=== PATIENT | female | born 1990 | race Caucasian/White ===

== ENCOUNTER 2019-01-23 08:55 | Inpatient (IN) | payer MEDICAID ==
[~2019-01-23] VITALS: Ht 172.7 cm; Wt 72.6 kg
--- NOTE | 2019-01-23 09:00 | NUR ---
PT TAKEN TO BED 12.
[2019-01-23] MEDS ORDERED: NACL 0.9% 1,000 ML IV ONE (09:03)
[2019-01-23 09:05] VITALS: BP 122/75
[2019-01-23] MEDS ORDERED: ONDANSETRON 4 MG/2 ML VIAL IVP ONE (09:05)
[2019-01-23] MEDS ORDERED: KETOROLAC 30 MG/ML VIAL IVP ONE (09:05)
[2019-01-23] MEDS ORDERED: CLINDAMYCIN 600 MG in DEXTROSE 5% 50 ML IV ONE (09:05)
[2019-01-23] MEDS ORDERED: CLINDAMYCIN 600 MG/4 ML VIAL ONE (09:23)
[2019-01-23 09:28] LABS: RED CELL DISTRIBUTION WIDTH 13.1 % (11.6-13.7)
[2019-01-23 09:33] LABS: HEMATOCRIT 34.3 % (36-48); HEMOGLOBIN 11.6 g/dL (12.0-16.0); MEAN CORPUSCULAR HEMOGLOBIN 31 pg (27-31); MEAN CORPUSCULAR HGB CONC 34 g/dL (33-37); MEAN CORPUSCULAR VOLUME 90.5 fL (80-94); PLATELET COUNT (AUTO) 223 K/uL (140-450); RED BLOOD CELL COUNT(AUTO) 3.79 MIL/uL (4.20-5.40)
[2019-01-23 09:37] LABS: ANION GAP 19.2 (8-16); CARBON DIOXIDE 22.2 mmol/L (21-32); CREATININE 1.1 mg/dL (0.6-1.3); POTASSIUM 3.4 mmol/L (3.5-5.1)
[2019-01-23 09:38] LABS: PROTHROMBIN TIME 11.6 secs (10.8-13.4)
[2019-01-23 09:42] LABS: LYMPHOCYTES % (MANUAL) 1 % (20-46); MONOCYTES % (MANUAL) 3 % (5-12)
[2019-01-23 09:43] LABS: ALBUMIN 3.4 g/dL (3.4-5.0); TOTAL BILIRUBIN 0.4 mg/dL (0.0-1.0)
[2019-01-23] MEDS ORDERED: PIPERACILLIN/TAZOBACTAM 3.375 GM in DEXTROSE 5% 50 ML IV ONE (10:05)
[2019-01-23] MEDS ORDERED: NACL 0.9% 1,500 ML IV ONE (10:05)
--- NOTE | 2019-01-23 10:08 | NUR ---
28 Y/O FEMALE PRESENTING WITH REDNESS ON LEFT ELBOW DUE TO SPIDER BITE PER PATIENT. NAUSEA, H/A X2 DAYS. PT COMPLAINTS OF PAIN 8/10. FEVER NOTED. NO MEDICAL HISTORY. DENIES DIARRHEA. SIDE RAIL X1. SIGNIFICANT OTHER AT BEDSIDE.
[2019-01-23] MEDS ORDERED: PIPERACILLIN/TAZOBACTAM 3.375 GM VIAL IV ONE (10:22)
[2019-01-23] MEDS ORDERED: DOCUSATE SODIUM 100 MG GELCAP PO PRN (10:30)
[2019-01-23] MEDS ORDERED: HYDROcodone/APAP 5/325 MG 1 TAB TAB PO PRN (10:30)
[2019-01-23] MEDS ORDERED: MORPHINE SULFATE 2 MG/ML SYR IVP PRN (10:30)
[2019-01-23 10:33] LABS: APPEARANCE,URINE SL CLOUDY (CLEAR); BILIRUBIN,URINE NEGATIVE (NEGATIVE); BLOOD, URINE NEGATIVE (NEGATIVE); COLOR,URINE YELLOW (YELLOW); LEUKOCYTE ESTERASE ,URINE NEGATIVE (NEGATIVE); NITRITE, URINE NEGATIVE (NEGATIVE); PH,URINE 5.5 (5.0-9.0); UGLUCOSE NEGATIVE (NEGATIVE)
[2019-01-23 10:46] LABS: RBC,URINE 0-5 /HPF (0-5); WBC,URINE 0-5 /HPF (0-5)
[2019-01-23 10:57] LABS: BARBITURATE, URINE POS. ng/ml (NEG <=200); BENZODIAZEPINE, URINE NEG. ng/mL (NEG <=200); CANNABINOID, URINE NEG. ng/mL (NEG <=50); COCAINE, URINE NEG. ng/mL (NEG <=300); OPIATE, URINE NEG. ng/mL (NEG <=2000); PHENCYCLIDINE SCREEN,URINE NEG. ng/mL (NEG <=25)
--- NOTE | 2019-01-23 11:30 | NUR ---
RECEIVED PT FROM NURSE ALVARADO FOR CONTINUITY OF CARE. PT IS AAOX4, AMBULATORY AND COOPERATIVE. PT SKIN IS INTACT BUT HAS DX OF CELLULITIS TO THE LEFT ELBOW. SKIN IS BRIGHT RED AND HAS OUTLINE MARKED BY ED PT ON RA WITHOUT S/S OF DISTRESS. PT COMPLAINS OF 7/10 PAIN FOR MARTIN. WILL MEDICATE INDICATED. EXPLAINED POC TO PT AND PT VERBALIZED UNDERSTANDING. BED IN LOW POSITION, CALL LIGHT WITHIN REACH. WILL CONTINUE TO ROUND FREQUENTLY ON PT. BED IN LOW POSITION, CALL LIGHT WITHIN REACH.
--- NOTE | 2019-01-23 11:30 | NUR ---
Patient will be admitted to care of DR MAYFIELD . Admited to [facility] . Will go to [id number]. Belongings list completed. Report to ROM RENO .
[2019-01-23 11:35] LABS: MAGNESIUM 1.7 mg/dL (1.8-2.4); PHOSPHORUS 3.1 mg/dL (2.5-4.9); THYROID STIMULATING HORMONE 0.37 uIU/mL (0.34-3.74)
[2019-01-23] MEDS ORDERED: LACTOBACILLUS RHAMNOSUS GG 1 EACH CAP PO SCH (12:35)
[2019-01-23] MEDS: NACL 0.9% 1,000 ML IV SCH (12:39)
[2019-01-23 13:10] LABS: PROTHROMBIN TIME 12.3 secs (10.8-13.4)
[2019-01-23] MEDS: ACETAMINOPHEN 325 MG TAB PO PRN ×2 (13:22→18:39)
--- NOTE | 2019-01-23 13:41 | NUR ---
PT SLEEPING IN BED WITH BF AT BEDSIDE. PT IN STABLE CONDITION, WILL ROUND FREQUENTLY ON PT.
[2019-01-23] MEDS ORDERED: POTASSIUM CHLORIDE 10 MEQ TABER PO SCH (14:15)
[2019-01-23] MEDS ORDERED: MAGNESIUM OXIDE 400 MG TAB PO SCH (14:15)
--- NOTE | 2019-01-23 15:34 | NUR ---
PT RESTING IN BED WITH FAMILY AT BEDSIDE. PT DENIES PAIN. WILL CONTINUE TO ROUND ON PT.
[2019-01-23 16:00] VITALS: BP 118/64
[2019-01-23] MEDS ORDERED: INFLUENZA VACCINE QUAD 0.5 ML SYR IMVAC PRN (16:30)
--- NOTE | 2019-01-23 17:41 | NUR ---
PT RESTING IN BED COMPLAINING OF MID MARTIN. I OFFERED PAIN MEDS BUT PT REFUSED AND ASKED FOR LIGHTS TO BE TURNED OFF AND FOR AN ICE PACK. WILL CONTINUE TO ASSESS PT FREQUENTLY.
[2019-01-23] MEDS: CLINDAMYCIN 600 MG in DEXTROSE 5% 50 ML IV SCH (18:39)
--- NOTE | 2019-01-23 19:30 | NUR ---
RECEIVED PT FROM ROM RENO PT IS AAOX4 AMBULATORY, LEFT WRIST GAUGE # 20 INFUSING WELL IV FLUID AND HL PATENT ON RT AC GAUGE @ 20 PATENT PAIN MEDIC ALREADY GIVEN FOR HEADACHE INITIAL ASSESSMENT DONE
--- NOTE | 2019-01-23 19:49 | NUR ---
ENDORSED PT TO TREE WORKER NURSE SHAUNNA FOR CONTINUITY OF CARE. PT IN STABLE CONDITION AT THIS TIME AND BEING DISCHARGED. Addendum: 01/23/19 at 1953 by Gloria Drake RN WRONG PT. PT ENDORSED TO YUNIOR TREE WORKER RN FOR CONTINUITY OF CARE. PT IN STABLE CONDITION AT THIS TIME. PT COMPLAINING OF MARTIN. NOTIFIED AND HE WILL PRESCRIBE FIORICET TO PT FOR MIGRAINE RELIEF. YUNIOR NOTIFIED OF PENDING ORDER.
[2019-01-23 20:00] VITALS: BP 107/65
[2019-01-23] MEDS: KETOROLAC 15 MG/ML VIAL IVP PRN (21:51)
--- NOTE | 2019-01-23 22:47 | NUR ---
PT SLEEPING WELL AFTERPAIN MEDIC GIVEN
[2019-01-24] VITALS: BP 103/67
[2019-01-24] MEDS: CLINDAMYCIN 600 MG in DEXTROSE 5% 50 ML IV SCH (02:15)
[2019-01-24] MEDS: NACL 0.9% 1,000 ML IV SCH ×3 (02:15→23:19)
--- NOTE | 2019-01-24 02:19 | NUR ---
PT VOIDING WELL WALKING TO THE RESTROOM NOT DISTRESS NOTED GETTING SLEEP LEFT ARM ON PILLOW ELEVATION
[2019-01-24] MEDS: KETOROLAC 15 MG/ML VIAL IVP PRN (05:38)
[2019-01-24 05:58] LABS: HEMATOCRIT 30.8 % (36-48); HEMOGLOBIN 10.3 g/dL (12.0-16.0); MEAN CORPUSCULAR HEMOGLOBIN 31 pg (27-31); MEAN CORPUSCULAR HGB CONC 33 g/dL (33-37); MEAN CORPUSCULAR VOLUME 91.7 fL (80-94); PLATELET COUNT (AUTO) 195 K/uL (140-450); RED BLOOD CELL COUNT(AUTO) 3.36 MIL/uL (4.20-5.40); RED CELL DISTRIBUTION WIDTH 12.9 % (11.6-13.7); WHITE BLOOD COUNT (AUTO) 15.1 K/uL (4.8-10.8)
--- NOTE | 2019-01-24 06:00 | NUR ---
PT SLEEPING WELL AFTER PAIN MEDIC GIVING
[2019-01-24 06:06] LABS: CARBON DIOXIDE 23.8 mmol/L (21-32); CREATININE 0.7 mg/dL (0.6-1.3); POTASSIUM 3.8 mmol/L (3.5-5.1)
[2019-01-24 06:18] LABS: MAGNESIUM 1.7 mg/dL (1.8-2.4); PHOSPHORUS 1.2 mg/dL (2.5-4.9)
[2019-01-24 06:29] LABS: LYMPHOCYTES % (MANUAL) 5 % (20-46); MONOCYTES % (MANUAL) 3 % (5-12)
[2019-01-24] MEDS: ONDANSETRON 4 MG/2 ML VIAL IM/IVP PRN ×2 (06:30→19:59)
[2019-01-24] MEDS ORDERED: SODIUM PHOS / POTASSIUM PHOS 1 PKT PDR PO SCH (06:40)
[2019-01-24] MEDS ORDERED: MAGNESIUM OXIDE 400 MG TAB PO SCH (06:40)
--- NOTE | 2019-01-24 06:44 | NUR ---
PT RESTING ON BED NOT DISTRESS NOTED AT THIS TIME, PT WILL BE ENDORSED TO DAY SHIFT NURSE FOR CONTINUE OF CARE
--- NOTE | 2019-01-24 07:20 | NUR ---
RECEIVED PT FROM DULSER NURSEYUNIOR, PT IS AWAKE AND LYING ON THE BED WITH SIDE RAILS UP AND CALL LIGHT WITHIN REACH, PERIPHERAL LINE ON THE RT AC G. 22 ON SALINE LOCK AND ON THE LEFT HAND G. 20 WITH NS INFUSING AT 60ML/HR, LEFT ELBOW CELLULITIS NOTED AND NO DRAINAGE NOTED, PT DENIES PAIN AND WILL CONTINUE TO BE MONITORED.
[2019-01-24 08:00] VITALS: BP 112/73
[2019-01-24] MEDS ORDERED: VANCOMYCIN PER PHARMACY MC PRN (08:00)
--- NOTE | 2019-01-24 08:21 | NUR ---
PATIENT HAS BEEN SCREENED AND CATEGORIZED LOW NUTRITION RISK. PATIENT WILL BE SEEN WITHIN 7 DAYS OF ADMISSION. 01/30/[address]
[2019-01-24] MEDS: LACTOBACILLUS RHAMNOSUS GG 1 EACH CAP PO SCH (09:11)
--- NOTE | 2019-01-24 09:12 | NUR ---
ADMINISTERED MEDICATION. EDUCATED PATIENT ON MEDICATION PURPOSE AND SIDE EFFECTS. PATIENT VERBALIZED UNDERSTANDING. PATIENT TOLERATED WELL. WILL CONTINUE TO MONITOR. BED IN LOW POSITION. CALL LIGHT WITHIN REACH. PATIENT INSTRUCTED TO UTILIZE CALL LIGHT FOR ANY ASSISTANCE.
[2019-01-24] MEDS: APAP/BUTAL/CAFF 325/50/40 MG 1 TAB PO PRN ×2 (09:16→18:30)
--- NOTE | 2019-01-24 09:18 | NUR ---
PATIENT C/O PAIN 10/15, HEADACHE. MEDICATED WITH PAIN MEDICATION, FIORICET. EDUCATED ON PURPOSE AND SIDE EFFECTS. WILL CONTINUE TO MONITOR PAIN LEVEL.
[2019-01-24] MEDS: VANCOMYCIN 1,000 MG in DEXTROSE 5% 250 ML IV SCH ×2 (10:19→18:21)
--- NOTE | 2019-01-24 10:19 | NUR ---
VANCOMYCIN IVPB WAS STARTED TO PT NOW, WILL MONITOR PT.
[2019-01-24] MEDS: PIPERACILLIN/TAZOBACTAM 3.375 GM in DEXTROSE 5% 50 ML IV SCH ×3 (11:21→23:19)
--- NOTE | 2019-01-24 12:25 | NUR ---
Parks Worker Note: Basic Screen: Yes High Risk DC Screen Cody: HEATH Hurtado Relationship: SIGNIFICANT OTHER Pre-Admission Living Arrangements: Lives with Other Prior ADL Independent Current Home Health Name/Tel: N/A Current DME/02 Name/Tel: N/A Current Hospice Name/Tel: N/A Current Dialysis Name/Tel: N/A Healthcare Decision Maker: Patient Advance Directive No - REFUSED Physician Orders for Life Sustaining Treatment Form No Patient/Family Have Educational Needs No Information Taught: Advance Directive Person Taught: Patient Teaching Tools: Verbal Factors Affecting Learning: None Participation Level: Refused Evaluation: Verbalizes Understanding Discipline: Case Mgt/Social Svcs Tentative Discharge Plan/Destination: No Needs Identified Will require assistance post discharge: No Referred to [facility]: No Tentative Discharge Plan Summary: Patient is a 28 year old female admitted for left elbow cellulitis. Patient has PMHX of migraine and anemia. Patient was admitted from home. ZEKE verified demographics with patient. Patient stated she has no PCP. SW provided low cost clinic resources. Patient stated her last appointment with a PCP was in April 2018. Patient reports no history of mental health and no substance abuse history. Patient's tentative discharge plan is to return home. No further needs identified. Signature: MARIAH Leblanc Date: Jan 24, 2019 Time: 12:24
[2019-01-24] MEDS: ACETAMINOPHEN 325 MG TAB PO PRN ×2 (13:40→23:47)
--- NOTE | 2019-01-24 13:41 | NUR ---
PATIENT COMPLAINT OF HEADACHE 10/15. FIORICET NOT DUE YET INSTEAD TYLENOL WERE GIVEN. EDUCATED ON MEDICATION AND SIDE EFFECTS. PATIENT TOLERATED WELL. WILL CONTINUE TO MONITOR.
[2019-01-24 16:00] VITALS: BP 115/69
--- NOTE | 2019-01-24 17:14 | NUR ---
PT WAS GIVEN IV ZOSYN IVPB NOW. WILL MONITOR PT
--- NOTE | 2019-01-24 18:21 | NUR ---
VANCOMYCIN IVPB WAS GIVEN TO PT NOW, WILL MONITOR PT.
--- NOTE | 2019-01-24 18:30 | NUR ---
PT WAS GIVEN FIORICET FOR THE MIGRAINE, WILL RE-ASSESS PAIN AND MONITOR PT.
--- NOTE | 2019-01-24 19:12 | NUR ---
ENDORSED PT TO [facility] SHIFT NURSESHILOH FOR CONTINUITY OF CARE.
--- NOTE | 2019-01-24 19:13 | NUR ---
RECEIVED BEDSIDE REPORT FROM AM SHIFT NURSE. PT IS LYING IN BED AWAKE . PT IS AMBULATORY. NO SOB OR DISTRESS NOTED. IV ACCESS NOTED ON LEFT HAND 20 GAUGE, PATENT AND INTACT, INFUSING WELL. AND RIGHT AC 22 GAUGE SALINE LOCK. NOTED WITH LEFT ARM CELLULITIS, WARM TO TOUCH WITH ICE PACK. INITIAL ASSESSMENT DONE. CALL LIGHT WITHIN PATIENT REACH. BOARD UPDATED. WILL CONTINUE TO MONITOR PATIENT.
--- NOTE | 2019-01-24 23:19 | NUR ---
IV ANTIBIOTIC ZOSYN STARTED AT THIS TIME. WILL CONTINUE TO MONITOR PATIENT.
--- NOTE | 2019-01-24 23:47 | NUR ---
PRN TYLENOL GIVEN FOR FEVER 102.7 AND COOLING MEASURES RENDERED. WILL CONTINUE TO MONITOR PATIENT. ICE PACK ON LEFT ARM CHANGED.
[2019-01-25 00:15] VITALS: BP 129/82
--- NOTE | 2019-01-25 00:45 | NUR ---
RECHECKED TEMP. PT TEMP OF 100.4. COOLING MEASURES STILL IN PLACE. WILL CONTINUE TO MONITOR PATIENT.
--- NOTE | 2019-01-25 01:15 | NUR ---
RECHECKED TEMP. PT TEMP OF 98.9 ORAL. ICE PACK ON LEFT ARM CHANGED. SKIN STILL RED AND WARM TO TOUCH. WILL CONTINUE TO MONITOR PATIENT.
[2019-01-25] MEDS: VANCOMYCIN 1,000 MG in DEXTROSE 5% 250 ML IV SCH (02:18)
--- NOTE | 2019-01-25 02:18 | NUR ---
IV ANTIBIOTIC VANCOMYCIN STARTED AT THIS TIME. WILL CONTINUE TO MONITOR PATIENT.
[2019-01-25] MEDS: APAP/BUTAL/CAFF 325/50/40 MG 1 TAB PO PRN (06:06)
[2019-01-25] MEDS: PIPERACILLIN/TAZOBACTAM 3.375 GM in DEXTROSE 5% 50 ML IV SCH ×3 (06:06→18:37)
--- NOTE | 2019-01-25 06:06 | NUR ---
IV ANTIBIOTIC ZOSYN STARTED AT THIS TIME. WILL CONTINUE TO MONITOR PATIENT.
[2019-01-25 06:16] LABS: HEMATOCRIT 30.4 % (36-48); HEMOGLOBIN 10.3 g/dL (12.0-16.0); MEAN CORPUSCULAR HEMOGLOBIN 31 pg (27-31); MEAN CORPUSCULAR HGB CONC 34 g/dL (33-37); MEAN CORPUSCULAR VOLUME 90.5 fL (80-94); PLATELET COUNT (AUTO) 207 K/uL (140-450); RED BLOOD CELL COUNT(AUTO) 3.35 MIL/uL (4.20-5.40); RED CELL DISTRIBUTION WIDTH 13.1 % (11.6-13.7); WHITE BLOOD COUNT (AUTO) 14.3 K/uL (4.8-10.8)
[2019-01-25 06:32] LABS: ANION GAP 15.2 (8-16); CARBON DIOXIDE 23.3 mmol/L (21-32); CREATININE 0.7 mg/dL (0.6-1.3); POTASSIUM 3.5 mmol/L (3.5-5.1)
--- NOTE | 2019-01-25 06:53 | NUR ---
PATIENT IN STABLE CONDITION. WILL ENDORSE TO AM SHIFT NURSE FOR CONTINUITY OF CARE.
--- NOTE | 2019-01-25 07:00 | NUR ---
RECEIVED REPORT FROM DOG OR ANIMAL SITTER NURSE AT BEDSIDE. PATIENT IS AWAKE, ALERT AND ORIENTED X4, LYING IN BED. RESPIRATION EVEN AND UNLABORED. IV INTACT AND PATENT TO LEFT HAND WITH IVF NS INFUSING AT 60ML/HR. TOLERATING WELL. LEFT ELBOW REDNESS AND EDEMA NOTED, ICE PACKS APPLIED FOR COMFORT. CALL LIGHT WITHIN REACH. WILL CONTINUE TO MONITOR PATIENT.
--- NOTE | 2019-01-25 07:05 | NUR ---
REPORT GIVEN TO NIGHT NURSE. PATIENT IS IN STABLE CONDITION.
[2019-01-25 08:00] VITALS: BP 129/68
--- NOTE | 2019-01-25 09:00 | NUR ---
NO IV ACCESS AVAILABLE AT THIS TIME. PICC LINE ORDERED PER DR. ZENDEJAS.
[2019-01-25] MEDS: LACTOBACILLUS RHAMNOSUS GG 1 EACH CAP PO SCH (09:07)
[2019-01-25 09:21] LABS: LYMPHOCYTES % (MANUAL) 8 % (20-46); MONOCYTES % (MANUAL) 5 % (5-12)
[2019-01-25 09:22] LABS: EOSINOPHILS % (MANUAL) 1 % (0-4)
[2019-01-25 10:33] LABS: MAGNESIUM 1.8 mg/dL (1.8-2.4); PHOSPHORUS 2.3 mg/dL (2.5-4.9)
--- NOTE | 2019-01-25 10:55 | NUR ---
PATIENT IS IN BED, AWAKE AND VERBALLY RESPONSIVE. CONSENT SIGNED FOR CT TO LEFT UPPER EXTREMITY WITH CONTRAST. FOLLOWED UP WITH CARMELO GUZMAN RESULT STILL PENDING. Addendum: 01/25/19 at 1101 by Julia Kate RN IN ADDITION TO NOTE ABOVE: AWAITING FOR PICC LINE INSERTION. CONSENT SIGNED.
--- NOTE | 2019-01-25 12:53 | NUR ---
PATIENT REPORTS PAIN TO LEFT ELBOW /, MEDICATED WITH PO NORCO 5/325 NOW. WILL CONTINUE TO MONITOR PATIENT. STILL AWAITING FOR THE PICC LINE NURSE FOR PICC INSERTION.
[2019-01-25] MEDS ORDERED: HYDROcodone/APAP 5/325 MG 1 TAB TAB PO SCH (13:00)
--- NOTE | 2019-01-25 13:27 | NUR ---
DC PLANNING 28 YRS OLD FEMALE ADMITTED FROM HOME WITH A DX OF LEFT ELBOW CELLULITIS. ALERT AND ORIENTED X 4, AMBULATE WITH NO ASSIST. MEDICAL HX MIGRAINE AND ANEMIA. SEPSIS PROTOCOL INITIATED ,ADMINISTERED IVF, ZOSYN AND CLINDAMYCIN . DC PLAN TO GO BACK TO HOME WITH ABX . CM TO FOLLOW
--- NOTE | 2019-01-25 13:40 | NUR ---
PICC LINE INSERTION STARTED NOW BY PICC LINE NURSE.
--- NOTE | 2019-01-25 14:00 | NUR ---
STAT CHEST XRAY DONE FOR PICC LINE PLACEMENT. RESULT IS READY, PER PICC LINE NURSE, PICC LINE IS IN CORRECT PLACE.
[2019-01-25] MEDS ORDERED: PIPERACILLIN/TAZOBACTAM 3.375 GM in DEXTROSE 5% 50 ML IV SCH (14:30)
[2019-01-25] MEDS: ONDANSETRON 4 MG/2 ML VIAL IM/IVP PRN (14:42)
--- NOTE | 2019-01-25 15:02 | NUR ---
PATIENT RECEIVED TDAP TO RIGHT DELTOID. NO BLEEDING NOTED. IV ANTIBIOTIC STARTED VIA PICC LINE TO RIGHT UPPER ARM. PATIENT IS ALERT, AWAKE AND ORIENTED X4. C/O NAUSEA ZOFRAN GIVEN ORDERED PRN. FAMILY AT BEDSIDE. NO S/S OF DISTRESS NOTED. WILL CONTINUE TO MONITOR.
[2019-01-25 16:00] VITALS: BP 116/66
[2019-01-25] MEDS ORDERED: VANCOMYCIN 1,250 MG in DEXTROSE 5% 250 ML IV SCH ×2 (18:00→19:00)
--- NOTE | 2019-01-25 18:30 | NUR ---
PT IS OFF UNIT FOR CT SCAN TO LEFT UPPER EXT. RIGHT UPPER ARM PICC LINE INTACT AND PATENT. PATIENT IS ALERT AND ORIENTED X4. NO S/S OF DISTRESS NOTED. VANCO TROUGH DRAWN AT 1700, AWAITING FOR ORDERS. WILL CONT. TO MONITOR. Addendum: 01/25/19 at 1946 by Julia Kate RN IN ADDITION TO NOTE ABOVE: VANCO TROUGH UNABLE TO ADMINISTER AT 1800 AWAITING PHARMACY PROTOCOL ORDERS.
--- NOTE | 2019-01-25 19:15 | NUR ---
RECEIVED BEDSIDE REPORT FROM AM SHIFT NURSE. PT RETURNED FROM CT SCAN AT THIS TIME. NO SOB OR DISTRESS NOTED. IV ACCESS NOTED ON RIGHT UPPER ARM PICC LINE. PATENT AND INFUSING WELL. NOTED WITH LEFT ELBOW CELLULITIS, WARM TO TOUCH. PT IS AMBULATORY, BED IN LOW. SAFETY MEASURES IN PLACE. BOARD UPDATED. INITIAL ASSESSMENT DONE. CALL LIGHT WITHIN PATIENT REACH.
--- NOTE | 2019-01-25 21:25 | NUR ---
SPOKE TO THI FROM PHARMACY AT THIS TIME. SHE CANCELLED THE CURRENT ORDERS FOR VANCOMYCIN AND PUT IN NEW ORDERS. NEW ORDER MADE FOR A LOADING DOSE OF VANCOMYCIN 1500MG IN D5 NS 500ML TO BE GIVEN AT 10PM AND THE 1,250MG IN D5 NS 250ML DOSE OF VANCOMYCIN TO BE PUSHED TO 0600.
[2019-01-25] MEDS ORDERED: VANCOMYCIN 1,000 MG VIAL ONE (21:49)
[2019-01-25] MEDS ORDERED: VANCOMYCIN 500 MG VIAL ONE (21:50)
[2019-01-25] MEDS ORDERED: VANCOMYCIN 1,500 MG in DEXTROSE 5% 500 ML IV SCH (22:00)
--- NOTE | 2019-01-25 22:10 | NUR ---
ROUNDS DONE AT THIS TIME. VISIBLE CHEST RISE AND FALL NOTED. ICE PACK CHANGED ON LEFT ARM CELLULITIS. WILL CONTINUE TO MONITOR PATIENT.
[2019-01-25] MEDS ORDERED: CLINDAMYCIN 600 MG in DEXTROSE 5% 50 ML IV SCH (22:30)
[2019-01-26] MEDS ORDERED: VANCOMYCIN 1,250 MG in DEXTROSE 5% 250 ML IV SCH ×2
--- NOTE | 2019-01-26 00:10 | NUR ---
VITAL SIGNS TAKEN AT THIS TIME. VISIBLE CHEST RISE AND FALL NOTED. ICE PACK CHANGED ON LEFT ARM CELLULITIS. WILL CONTINUE TO MONITOR PATIENT.
[2019-01-26 00:15] VITALS: BP 144/80
[2019-01-26] MEDS ORDERED: CLINDAMYCIN 600 MG/4 ML VIAL ONE ×2 (00:31→04:37)
--- NOTE | 2019-01-26 03:20 | NUR ---
ROUNDS DONE AT THIS TIME. VISIBLE CHEST RISE AND FALL NOTED. ICE PACK CHANGED ON LEFT ARM CELLULITIS. WILL CONTINUE TO MONITOR PATIENT.
[2019-01-26] MEDS: CLINDAMYCIN 600 MG in DEXTROSE 5% 50 ML IV SCH ×3 (04:52→21:15)
[2019-01-26] MEDS: NACL 0.9% 1,000 ML IV SCH ×2 (05:10→11:38)
[2019-01-26] MEDS: VANCOMYCIN 1,250 MG in DEXTROSE 5% 250 ML IV SCH ×3 (06:02→22:00)
[2019-01-26 06:21] LABS: BASOPHILS % (AUTO) 0.4 % (0.0-2.0); EOSINOPHILS # (AUTO) 0.3 K/uL (0-0.4); EOSINOPHILS % (AUTO) 2.4 % (0.0-4.0); HEMATOCRIT 28.8 % (36-48); HEMOGLOBIN 9.8 g/dL (12.0-16.0); LYMPHOCYTES # (AUTO) 1.4 K/uL (2.5-16.5); LYMPHOCYTES % (AUTO) 12.7 % (20.5-51.1); MEAN CORPUSCULAR HEMOGLOBIN 30 pg (27-31); MEAN CORPUSCULAR HGB CONC 34 g/dL (33-37); MEAN CORPUSCULAR VOLUME 89.6 fL (80-94); NEUTROPHILS # (AUTO) 8.5 K/uL (1.8-7.7); NEUTROPHILS % (AUTO) 75.5 % (42.2-75.2); PLATELET COUNT (AUTO) 235 K/uL (140-450); RED BLOOD CELL COUNT(AUTO) 3.21 MIL/uL (4.20-5.40); WHITE BLOOD COUNT (AUTO) 11.3 K/uL (4.8-10.8)
[2019-01-26 06:37] LABS: ANION GAP 14.7 (8-16); CARBON DIOXIDE 24.7 mmol/L (21-32); CREATININE 0.7 mg/dL (0.6-1.3); POTASSIUM 3.4 mmol/L (3.5-5.1)
[2019-01-26 06:47] LABS: MAGNESIUM 1.9 mg/dL (1.8-2.4); PHOSPHORUS 3.7 mg/dL (2.5-4.9)
--- NOTE | 2019-01-26 06:59 | NUR ---
PT IN STABLE CONDITION. CALL LIGHT WITHIN PATIENT REACH. WILL ENDORSE TO AM SHIFT NURSE FOR CONTINUITY OF CARE.
--- NOTE | 2019-01-26 07:20 | NUR ---
RECEIVED REPORT FROM NIGHT RN. PT RESTING IN BED. AAOX4. NO S/S OF ACUTE DISTRESS. PT DENIES PAIN. IV SITE PATENT AND INTACT. CALL LIGHT WITHIN REACH. SAFETY MEASURES ENSURED. WILL CONTINUE TO MONITOR.
[2019-01-26 08:00] VITALS: BP 142/79
[2019-01-26] MEDS: LACTOBACILLUS RHAMNOSUS GG 1 EACH CAP PO SCH (08:38)
[2019-01-26] MEDS: RIVAROXABAN 15 MG TAB PO SCH ×2 (08:39→21:18)
--- NOTE | 2019-01-26 11:16 | NUR ---
PATIENT RESTING IN BED. NO S/S OF ACUTE DISTRESS. PT DENIES PAIN. ICE PACKS APPLIED TO ARM. CALL LIGHT WITHIN REACH. SAFETY MEASURES ENSURED. WILL CONTINUE TO MONITOR.
--- NOTE | 2019-01-26 15:49 | NUR ---
PATIENT SLEEPING IN BED. NO S/S OF ACUTE DISTRESS. PT DENIES PAIN. IV SITE PATENT AND INTACT. CALL LIGHT WITHIN REACH. SAFETY MEASURES ENSURED. WILL CONTINUE TO MONITOR.
[2019-01-26 16:00] VITALS: BP 151/85
[2019-01-26] MEDS ORDERED: POTASSIUM CHLORIDE 10 MEQ TABER PO SCH (16:30)
[2019-01-26] MEDS: ACETAMINOPHEN 325 MG TAB PO PRN (16:48)
[2019-01-26] MEDS: ONDANSETRON 4 MG/2 ML VIAL IM/IVP PRN (16:48)
--- NOTE | 2019-01-26 19:50 | NUR ---
RECEIVED FROM AM RN IN BED SITTING UP AND WATCHING TV. A/O X 4. PT. ABLE TO VERBALIZE NEEDS WELL. CALL LIGHT WITH IN REACH AND CARE PLANS FOR THE NIGHT DISCUSSED WITH HER.
--- NOTE | 2019-01-26 22:00 | NUR ---
MADE RESIDENT MD MONTALVO RE" VANCO TROUGH IS HIGH/16. " HOLD THE VANCOMYCIN FOR NOW. ANY WAYS WE MIGHT DISCONTINUE IT." BOTTLE LABEL INSPECTOR KODY ALSO SAID TO HOLD VANCOMYCIN MEDICATION FOR NOW.
[2019-01-27] VITALS: BP 140/80
--- NOTE | 2019-01-27 03:00 | NUR ---
NO RESTLESSNESS. SLEEPING.
--- NOTE | 2019-01-27 04:12 | NUR ---
PT. SLEEPING WELL THIS SHIFT.
[2019-01-27] MEDS: CLINDAMYCIN 600 MG in DEXTROSE 5% 50 ML IV SCH (04:35)
[2019-01-27] MEDS: VANCOMYCIN 1,250 MG in DEXTROSE 5% 250 ML IV SCH (05:08)
--- NOTE | 2019-01-27 05:13 | NUR ---
PLEASE SEE ADDED NOTES IN CHART FOR THE DAY.
[2019-01-27 06:30] LABS: MAGNESIUM 2.1 mg/dL (1.8-2.4); PHOSPHORUS 4.3 mg/dL (2.5-4.9)
[2019-01-27 07:14] LABS: BASOPHILS % (AUTO) 0.5 % (0.0-2.0); EOSINOPHILS # (AUTO) 0.2 K/uL (0-0.4); HEMATOCRIT 29.3 % (36-48); LYMPHOCYTES # (AUTO) 1.4 K/uL (2.5-16.5); LYMPHOCYTES % (AUTO) 14.6 % (20.5-51.1); MEAN CORPUSCULAR HEMOGLOBIN 31 pg (27-31); MEAN CORPUSCULAR HGB CONC 34 g/dL (33-37); MEAN CORPUSCULAR VOLUME 89.7 fL (80-94); MONOCYTES # (AUTO) 1.1 K/uL (0.8-1.0); MONOCYTES % (AUTO) 11.1 % (1.7-9.3); NEUTROPHILS % (AUTO) 71.8 % (42.2-75.2); PLATELET COUNT (AUTO) 265 K/uL (140-450); RED BLOOD CELL COUNT(AUTO) 3.26 MIL/uL (4.20-5.40); RED CELL DISTRIBUTION WIDTH 13.3 % (11.6-13.7); WHITE BLOOD COUNT (AUTO) 9.7 K/uL (4.8-10.8)
--- NOTE | 2019-01-27 07:20 | NUR ---
RECEIVE REPORT ON PT FROM PM NURSE. PT IS AWAKE IN BED. RESPIRATIONS ARE EVEN AND UNLABORED.
[2019-01-27] MEDS: APAP/BUTAL/CAFF 325/50/40 MG 1 TAB PO PRN (07:51)
[2019-01-27] MEDS: ONDANSETRON 4 MG/2 ML VIAL IM/IVP PRN (07:51)
[2019-01-27 08:00] VITALS: BP 145/81
[2019-01-27 08:13] LABS: CARBON DIOXIDE 24.7 mmol/L (21-32); CREATININE 0.7 mg/dL (0.6-1.3); POTASSIUM 3.7 mmol/L (3.5-5.1)
[2019-01-27] MEDS ORDERED: RIVA15TA1 PO (08:42)
[2019-01-27] MEDS ORDERED: CLIN300C2 PO (08:42)
[2019-01-27] MEDS ORDERED: LACT10CA PO (08:42)
[2019-01-27] MEDS: LACTOBACILLUS RHAMNOSUS GG 1 EACH CAP PO SCH (09:10)
[2019-01-27] MEDS: RIVAROXABAN 15 MG TAB PO SCH (09:17)
--- NOTE | 2019-01-27 09:30 | NUR ---
PT IS IN BED RESTING, RESPIRATION ARE EVEN AND UNLABORED.
--- NOTE | 2019-01-27 11:30 | NUR ---
REMOVED RIGHT ARM PICC LINE. PICC LINE INTACT. PT TOLERATED PICC REMOVE WELL. PT IS STABLE WITH NO SIGNS OF DISTRESS.
--- NOTE | 2019-01-27 12:00 | NUR ---
PT DISCHARGED FROM THE HOSPITAL. PT WAITING IN THE LOBBY FOR UBER. PT AMBULATED TO THE LOBBY WITH STEADY GAIT.
== END 2019-01-27 12:00 | disposition home or self-care (01) | DRG 720 ==
LOC: MED 08:55 → MTU 10:30
PROVIDERS: ADMIT General Practice; ATTEND General Practice
PROC: 02HV33Z Insertion of Infusion Device into Superior Vena Cava, Percutaneous Approach (ICD-10-PCS; principal; 2019-01-25)
PROC: B548ZZA Ultrasonography of Superior Vena Cava, Guidance (ICD-10-PCS; 2019-01-25)
PROC: 3E0234Z Introduction of Serum, Toxoid and Vaccine into Muscle, Percutaneous Approach (ICD-10-PCS; 2019-01-25)
DX: A41.9 Sepsis, unspecified organism (principal); I82.412 Acute embolism and thrombosis of left femoral vein; E83.39 Other disorders of phosphorus metabolism; E83.42 Hypomagnesemia; E87.6 Hypokalemia; R82.4 Acetonuria; L03.114 Cellulitis of left upper limb; Z98.891 History of uterine scar from previous surgery; Z80.42 Family history of malignant neoplasm of prostate; Z23 Encounter for immunization
CPT/HCPCS: 36415; 71045; 73080; 73201; 76881; 80048; 80053; 80202; 80305; 81001; 83605; 83690; 83735; 84100; 84443; 85025; 85610; 85730; 87040; 87081; 87086; 90715; 93970; 93971; 96365; 96367; 96375; 99285; C1751; J0696; J1885; J2270; J2405; J2543; J3370; J3490; J7030; J7060; Q0092; Q0163; Q9967